=== PATIENT | female | born 1985 | race Caucasian/White ===

== ENCOUNTER 2020-11-28 15:15 | Observation (INO) | payer OTHER ==
[2020-11-28] MEDS ORDERED: PREN-217 PO (15:23)
[2020-11-28 15:24] VITALS: BP 127/86
== END 2020-11-28 16:45 | disposition home or self-care (01) ==
LOC: 4S 15:15
PROVIDERS: ADMIT Obstetrics & Gynecology; ATTEND Obstetrics & Gynecology
DX: O09.523 Supervision of elderly multigravida, third trimester (principal); Z3A.38 38 weeks gestation of pregnancy
CPT/HCPCS: 59025; 76805; 99219

== ENCOUNTER 2020-12-01 15:25 | Inpatient (IN) | payer OTHER ==
[~2020-12-01] VITALS: Ht 152.4 cm; Wt 73.9 kg
[~2020-12-01 15:25] MED LIST: PREN-217 PO
[2020-12-01] MEDS ORDERED: RINGERS SOLUTION,LACTATED 1,000 ML IV PRN (15:45)
[2020-12-01] MEDS ORDERED: METHYLERGONOVINE MALEATE 0.2 MG/ML VIAL IM PRN (15:45)
[2020-12-01] MEDS ORDERED: CITRIC ACID/SODIUM CITRATE 30 ML SOLUTION UDCUP PO PRN (15:45)
[2020-12-01] MEDS ORDERED: OXYTOCIN 30 UNITS/LACT RINGERS 500 ML IV ONE (15:45)
[2020-12-01] MEDS ORDERED: METOCLOPRAMIDE HCL 5 MG/ML 2 ML VIAL IVP PRN (15:45)
[2020-12-01] MEDS ORDERED: LIDOCAINE/PF 1% 30 ML VIAL SQ PRN (15:45)
[2020-12-01] MEDS ORDERED: MISOPROSTOL 50 MCG TABLET PO ONE (16:15)
[2020-12-01 16:17] LABS: BASOPHILS % (AUTO) 0.3 % (0.0-2.0); HEMATOCRIT 33.7 % (36-46); HEMOGLOBIN 11.4 g/dL (12.0-16.0); LYMPHOCYTES # (AUTO) 1.1 K/uL (1.0-4.8); LYMPHOCYTES % (AUTO) 17.5 % (22.0-44.0); MEAN CORPUSCULAR HEMOGLOBIN 32.1 pg (26.0-34.0); MEAN CORPUSCULAR HGB CONC 33.9 G/dL (31.0-37.0); MEAN CORPUSCULAR VOLUME 95 fL (80-100); MONOCYTES # (AUTO) 0.6 K/uL (0.1-1.0); MONOCYTES % (AUTO) 9.4 % (2.0-9.0); NEUTROPHILS # (AUTO) 4.5 K/uL (1.8-7.7); NEUTROPHILS % (AUTO) 71.8 % (40.0-70.0); PLATELET COUNT (AUTO) 250 K/uL (150-450); RED BLOOD CELL COUNT(AUTO) 3.56 MIL/uL (4.00-5.20); RED CELL DISTRIBUTION WIDTH 13.8 % (11.5-14.5)
[2020-12-01 17:45] VITALS: BP 108/64
[2020-12-01] MEDS ORDERED: MINERAL OIL 30 ML UDCUP VG ONE (18:00)
[2020-12-01] MEDS ORDERED: OXYGEN THERAPY IH SCH (20:00)
[2020-12-01] MEDS: RINGERS SOLUTION,LACTATED 1,000 ML IV SCH (21:10)
[2020-12-01] MEDS: MISOPROSTOL 50 MCG TABLET PO SCH (21:33)
[2020-12-02] MEDS: RINGERS SOLUTION,LACTATED 1,000 ML IV SCH ×4 (01:36→22:12)
[2020-12-02] MEDS: MISOPROSTOL 50 MCG TABLET PO SCH ×2 (02:27→07:27)
[2020-12-02] MEDS: FentaNYL CITRATE PF 100 MCG/2 ML VIAL IVP PRN ×2 (02:29→05:52)
[2020-12-02] MEDS ORDERED: OXYTOCIN 10 UNITS/ML VIAL IM ONE (09:43)
[2020-12-02] MEDS ORDERED: CefoTEtan DISODIUM 1 GM/VIAL ONE (09:43)
[2020-12-02] MEDS ORDERED: MIDAZOLAM HCL 2 MG/2 ML VIAL ONE (11:51)
[2020-12-02] MEDS ORDERED: FentaNYL CITRATE PF 100 MCG/2 ML VIAL ONE (11:51)
[2020-12-02] MEDS ORDERED: MORPHINE SULFATE/PF 1 MG/ML 10 ML AMP ONE (11:51)
[2020-12-02] MEDS ORDERED: BUPIVACAINE HCL/DEX-WATER/PF 0.75% 2 ML AMP ITH ONE (11:51)
[2020-12-02] MEDS ORDERED: ACETAMINOPHEN 1000 MG/ISO-OSM 100 ML IV ONE (11:52)
[2020-12-02] MEDS ORDERED: ONDANSETRON HCL 4 MG/2 ML VIAL ONE (11:52)
[2020-12-02] MEDS ORDERED: DEXAMETHASONE SOD PHOS 4 MG/ML VIAL ONE (11:52)
[2020-12-02] MEDS ORDERED: KETOROLAC TROMETHAMINE 30 MG/ML VIAL ONE (11:52)
[2020-12-02] MEDS ORDERED: OxyCODONE HCL/ACETAMINOPHEN 5-325 MG TABLET PO PRN ×2 (12:30→12:45)
[2020-12-02] MEDS ORDERED: OXYTOCIN 30 UNITS/LACT RINGERS 500 ML IV ONE (12:45)
[2020-12-02] MEDS ORDERED: LANOLIN 7 GM OINTMENT TP PRN (12:45)
[2020-12-02] MEDS: KETOROLAC TROMETHAMINE 30 MG/ML VIAL IVP SCH ×2 (18:27→23:51)
[2020-12-02] MEDS ORDERED: ONDANSETRON HCL 4 MG/2 ML VIAL IVP PRN (18:45)
[2020-12-02] MEDS ORDERED: OXYGEN THERAPY IH SCH ×2 (20:00)
[2020-12-03 06:29] LABS: BASOPHILS % (AUTO) 0.1 % (0.0-2.0); EOSINOPHILS % (AUTO) 0.2 % (1.0-6.0); HEMATOCRIT 27.1 % (36-46); HEMOGLOBIN 9.3 g/dL (12.0-16.0); LYMPHOCYTES # (AUTO) 1.6 K/uL (1.0-4.8); LYMPHOCYTES % (AUTO) 17.2 % (22.0-44.0); MEAN CORPUSCULAR HEMOGLOBIN 32.3 pg (26.0-34.0); MEAN CORPUSCULAR HGB CONC 34.1 G/dL (31.0-37.0); MEAN CORPUSCULAR VOLUME 95 fL (80-100); MONOCYTES # (AUTO) 1.1 K/uL (0.1-1.0); MONOCYTES % (AUTO) 11.3 % (2.0-9.0); NEUTROPHILS # (AUTO) 6.7 K/uL (1.8-7.7); NEUTROPHILS % (AUTO) 71.2 % (40.0-70.0); PLATELET COUNT (AUTO)-OB 204 K/uL (150-450); RED BLOOD CELL COUNT(AUTO) 2.87 MIL/uL (4.00-5.20); RED CELL DISTRIBUTION WIDTH 13.7 % (11.5-14.5)
[2020-12-03] MEDS: KETOROLAC TROMETHAMINE 30 MG/ML VIAL IVP SCH (06:34)
[2020-12-03] MEDS: MAGNESIUM HYDROXIDE SUSPENSION 30 ML UDCUP PO SCH ×2 (08:44→21:08)
[2020-12-03] MEDS ORDERED: PERCT PO (08:55)
[2020-12-03] MEDS ORDERED: IBUP-2070 PO (08:56)
[2020-12-03] MEDS ORDERED: ACET-2247 PO (08:56)
[2020-12-03] MEDS ORDERED: DOCU-275 PO (08:57)
[2020-12-03] MEDS: IBUPROFEN 800 MG TABLET PO PRN ×2 (13:10→21:14)
[2020-12-03] MEDS: OxyCODONE HCL/ACETAMINOPHEN 5-325 MG TABLET PO PRN (21:14)
[2020-12-04] MEDS: IBUPROFEN 800 MG TABLET PO PRN (05:03)
[2020-12-04] MEDS: MAGNESIUM HYDROXIDE SUSPENSION 30 ML UDCUP PO SCH (08:04)
[2020-12-04] MEDS: OxyCODONE HCL/ACETAMINOPHEN 5-325 MG TABLET PO PRN (08:05)
== END 2020-12-04 12:55 | disposition home or self-care (01) | DRG 788 ==
LOC: 4S 15:25 → OBSVTOIN 15:25 → 4S 12-02 14:09
PROVIDERS: ADMIT Obstetrics & Gynecology; ATTEND Obstetrics & Gynecology
PROC: 10D00Z1 Extraction of Products of Conception, Low, Open Approach (ICD-10-PCS; principal; 2020-12-02)
DX: O61.9 Failed induction of labor, unspecified (principal); Z3A.39 39 weeks gestation of pregnancy; Z37.0 Single live birth
CPT/HCPCS: 86850; 86900; 86901; A9575; J0131; J1100; J1885; J2250; J2405; J2590; J2765; J3010; J3490; J7120